=== PATIENT | female | born 1955 | race Caucasian/White ===

== ENCOUNTER 2016-07-24 14:47 | Inpatient (IN) | payer MEDICAID ==
[~2016-07-24] VITALS: Ht 167.6 cm; Wt 60.8 kg
[~2016-07-24 14:47] MED LIST: AMBIEN 10MG TAB10 MG PO; AMITRIPTYLINE 550 MG OR; AMITRIPTYLINE 550 MG PO; AMITRIPTYLINE100 M1; AMOXICILLIN 50500 MG PO; APAP/OXYCODONE1 TA5 PO; B12 INJ.,1000 MCG/M IM; BENADRYL 25MG C25 MG PO; BENADRYL 50MG C50 MG PO; BUT/ASP/CAFF W/1 CAP; CIPRO 500MG TA500 MG PO; CLONAZEPAM 1MG T1 MG PO; CLONAZEPAM0.5 M1 PO; CLONAZEPAM2 MG PO; DOCUSATE SODIU100 MG PO; ELAVIL GENERIC10 MG PO; FLAGYL500 M1 PO; FLONASE 50 MCG16 GM; HYDROCHLOROTHIA25 M1 PO; IBUPROFEN800 MG PO; KEFLEX 500MG.500 MG PO; LEVAQUIN750 MG PO; LISINOPRIL10 MG PO; LORAZEPAM0.5 MG/TAB PO; MORPHINE SULFAT15 M1 PO; MOTRIN 600MG.600 MG PO; MS CONTIN 30MG.30 MG PO; MUPIROCIN 2% O1 INCH TP; NEURONTIN 300M300 MG PO; NORCO 325 MG-51 TAB PO; ONE DAILY WOME1 EACH PO; OXYCODONE 5MG TA5 MG PO; PANTOPRAZOLE SO40 M1 PO; PERCOCET 325 MG1 TA3 PO; PERCOCET 325 MG1 TA4 PO; PHENERGAN 25MG.25 M1 PO; POTASSIUM CHLO20 ME2 PO; PROMETHAZINE HC25 M1 PO; PROVENTIL0.09 MG/AC IH; ROBAXIN-750750 MG PO; TIZANIDINE HCL 44 MG PO; TRIAMCINOL15 GM/TUBE; TYLENOL ES500 MG PO; VIT D2 PO; VITAMIN D1000 IU PO; VOLTAREN50 MG TP; XARELTO20 MG PO; ZANAFLEX 2MG TAB2 MG PO; ZOLPIDEM 5MG TAB5 MG PO
[2016-07-24 14:49] VITALS: BP 141/98
[2016-07-24] MEDS ORDERED: BENTYL10 MG PO (15:00)
--- NOTE | 2016-07-24 15:06 | Emergency Room Report ---
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 N Clinical Suspician of Infection? N Mental Status: 1 - Regular (Normal Baseline) Sepsis Risk:Low Sepsis Risk Have you (or family members/close friends) recently traveled outside the [place]? N If Yes, where/when: Have you had exposure to infectious disease within the past month? TB? Other? Specify: Source patient, RN notes reviewed, family, RN/MD Exam Limitations no limitations Comment This is a 60-year-old female patient presented to the emergency room with abdominal pain, nausea, vomiting, diarrhea, for the past 2 days. Patient is advised that she is unable to hold anything down, solid or liquid. She also appears depressed, over her turning 7 years old shortly. Abdominal pain seems to be radiating to the chest as well, which is a recurrent complaint. Patient just recently underwent a cardiac catheterization performed by Dr. Dai, no stents required. ALLERGIES Coded Allergies: adhesive tape (Severe, BLISTERING WELTS 03/29/15) trazodone (Severe, CHEST TIGHTNESS 03/29/15) NSAIDS (Non-Steroidal Anti-Inflamma (Intermediate, "KIDNEY PROBLEMS" 03/29/15) esomeprazole (Intermediate, I-HIVES 03/29/15) propylene glycol (Intermediate, ITCHING 03/29/15) topiramate (Intermediate, SHORTNESS OF BREATH, ACHY JOINTS 03/29/15) warfarin ("SENSITIVITY" 03/29/15) ketamine (Intermediate, HALLUCINATIONS 03/29/15) pregabalin (Intermediate, SWELLING 03/29/15) pseudoephedrine (Intermediate, PALPITATIONS 03/29/15) Home Medications Reported Medications Diphenhydramine Hcl (Benadryl 25MG CAP) 25 MG PO Q6HP PRN ALLERGIES TIZANIDINE HCL (Tizanidine Hcl 4 Mg Tablet) 4 MG PO Q8HP PRN MUSCLE SPASMS PROMETHAZINE HCL (Promethazine 25mg Tab) 25 MG PO Q8HP PRN NAUSEA/VOMITING HYDROCHLOROTHIAZIDE (Hydrochlorothiazide) 25 MG PO QAM Gabapentin (Neurontin 300MG) 300 MG PO QID OXYCODONE HCL/ACETAMINOPHEN (Oxycodone-Acetaminophen 5-325) 1 TAB PO TID #90 TAB Docusate Sodium 100 MG PO BID Vitamin B12 (Cyanocobalamin Injection) 1,000 MCG IM TWICE WEEKLY Clonazepam (Clonazepam 1MG) 1 MG PO TID #90 Rivaroxaban (Xarelto) 20 MG PO DAILY #30 Lisinopril 10 MG PO DAILY #30 Dicyclomine Hcl (Bentyl 10MG) 10 MG PO Q6HP PRN pain Amitriptyline Hcl (Elavil Generic 10MG Tab) 150 MG PO QHS Fluticasone Propionate (Flonase 50 Mcg Nasal [place]) 1 SPRAY NA PRN PRN ALLERGIES Pantoprazole Sodium 40 MG PO DAILY #30 History Medical History General CAD? No Angina: Yes CT: No Hypertension? Yes Hyperlipidemia? No CHF? No DVT? No PE? Yes COPD? Yes Asthma? Yes Anemia? No GERD? Yes Gastric ulcers? No GI Bleed? No Hernia? Yes Thyroid Problems? No Hypothyroidism? No CVA? No Seizures? No Diabetes? No Insulin Dependent: No Insulin Pump: No Home FSBS? No Renal Insuffiency? No End Stage Renal Disease? No UTI? No Stones? No BPH? No GB Disease: No Nephritic Syndrome? No Asplenia? No Hepatitis? No Sickle Cell Disease? No Arthritis? Yes Migraines? No Cataracts? No Glaucoma? No MRSA? No HIV? No TB? No Anxiety? Yes Depression? Yes Cancer? No Site: SKIN CA, APPENDIX CA More? 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 N/A Family History Family Hx Diabetes No CAD No Hypertension No Hyperlipidemia No Cancer No TB No Social History Smoking Hx Smoker: Current Every Day Smoker Tobacco: Yes Type Cigarettes Packs/day < 1 Pack Alcohol Alcohol: No Review of Systems All Other Systems Reviewed and Negative Cardiovascular chest pain, palpitations Gastrointestinal abdominal pain, diarrhea, nausea, vomiting Physical Exam Vital Signs Vital Signs Date Time Temp Pulse Resp B/P Pulse O2 O2 Flow FiO2 Ox Delivery Rate 07/24 1736 97.9 105 18 144/94 99 07/24 1722 18 07/24 1647 99.2 110 18 135/89 99 07/24 1449 99.2 113 18 141/98 99 General Appearance normal appearance, WD/WN, mild distress, depressed, anxious Neck normal inspection, non-tender, supple, full range of motion Respiratory Status Yes: trachea midline, chest symmetrical, non tender chest. No: respiratory distress. Lung Sounds bilateral: normal breath sounds, lungs clear. 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 No Comment 16:30-case discussed with Dr. Holm, advised the patient's presentation, findings, ED course, vital signs, inability to hold anything down. Dr. Holm advised he will see the patient emergency room 17:20-case discussed with Dr Holm, present in the emergency room, evaluating patient. Dr. Holm recommended hospitalist patient, with IV fluids, IV antibiotics, IV pain control. We'll also obtain a CT scan of the abdomen and pelvis with oral and IV contrast, if possible. 17:20-patient refusing oral contrast, stating that she is unable to tolerate anything orally, despite being premedicated with antiemetics. Results/Orders Laboratory Tests 07/24/16 1635: Sodium 139, Potassium 2.8 *L, Chloride 104, Carbon Dioxide 28, BUN 1 L, Creatinine 0.6, Estimated Creat Clear 96, Estimated GFR (MDRD) 102, Glucose 94, Calcium 7.8 L, Total Bilirubin 0.5, AST 19, ALT 14, Alkaline Phosphatase 103, Total Protein 5.8 L, Albumin 2.4 L, Globulin 3.4 H, Albumin/Globulin Ratio 0.7 L, Amylase 17 L, Lipase 123, WBC 11.7 H, RBC 4.16 L, Hgb 13.0, Hct 40.4, MCV 97.1, RDW 16.4, Plt Count 367, MPV 5.7 L, Gran % 65.3, Gran # 7.7, Lymphocytes % 28.4, Monocytes % 5.6, Eosinophils % 0.4, Basophils % 0.3, Lymphocytes # 3.3, Monocytes # 0.7, Eosinophils # 0.0, Basophils # 0.0, PUBS MCHC 32.2, MCH 31.2 Current Medication Orders Sig/Gus Start time Last Medication Dose Route Stop Time Status Admin Multi-Ingredient GI 0 .STK-MED ONE 07/24 1716 DC Drug PO Ondansetron HCl 0 .STK-MED ONE 07/24 171 DC .ROUTE Potassium Chloride 0 .STK-MED ONE 07/24 171 DC PO Lorazepam 0 .STK-MED ONE 07/24 171 DC .ROUTE Lorazepam 1 MG ONCE ONE 07/24 1715 DC 07/24 IV 07/24 1716 1722 Potassium Chloride 60 MEQ ONCE ONE 07/24 1715 DC 07/24 PO 07/24 1716 1720 Levofloxacin/Dextrose 150 ML .STK-MED ONE 07/24 1634 DC IV Levofloxacin 0 .STK-MED ONE 07/24 1633 DC .ROUTE Metronidazole 0 .STK-MED ONE 07/24 1632 DC .ROUTE Levofloxacin 750 MG ONCE ONE 07/24 1615 DC 07/24 PO 07/24 1616 1636 Levofloxacin/Dextrose 150 ML ONCE ONE 07/24 1615 DCr 07/24 IV 07/24 1744 1637 Metronidazole 500 MG ONCE ONE 07/24 1615 DC 07/24 PO 07/24 1616 1636 Ondansetron HCl 4 MG ONCE ONE 07/24 1600 DC 07/24 IV 07/24 1601 1600 Ondansetron HCl 0 .STK-MED ONE 07/24 1559 DC .ROUTE Sodium Chloride 1,000 ML .Q1H1M 07/24 1515 DC 07/24 IV 07/24 1615 1547 Sodium Chloride 10 ML PRN PRN 07/24 1515 AC IV 07/25 1507 Sodium Chloride 1,000 ML .STK-MED ONE 07/24 1513 DC IV Sodium Chloride 10 ML PRN PRN 07/24 1500 AC IV 07/25 1500 Orders Procedure Date/time Status DIET-NOTHING BY MOUTH 07/24 D Complete Decision to admit 07/[address] ABD & PELVIS W/ CONTRAST 07/[address] ABD/PELVIS REQ 07/24 1606 Complete DIARRHEA PANEL, PCR 07/24 1507 Active ELECTROCARDIOGRAM REQUEST 07/24 1501 Active IV SALINE LOCK 07/24 1501 Active URINALYSIS/COMPLETE 07/24 1501 Active LIPASE 07/24 1501 Complete CBC WITH AUTO DIFF 07/24 1501 Complete CHEM 12 PROFILE 07/24 1501 Complete AMYLASE 07/24 1501 Complete 12 LEAD EKG-MARISASON (INITIAL) 07/24 UNK Active 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 of ischemic chgs, no ectopy, normal QRS, normal ID, no EKG for comparison, non-spec. ST/Twave chgs, ST elevation, ST depression, LBBB, RBBB, ectopy, abnormal Q waves XRAY/CT/US XRAY/CT/US 1 XRAY chest XR interpretation by reviewed by me, discussed w/radiologist Xray Results no infiltrates, normal heart size, normal lung inflation lily XRAY/CT/US 2 CT abdomen, pelvis CT interpretation by discussed w/radiologist CT Results CT scan abdomen and pelvis with IV contrast only, patient could NOT tolerate PO contrast - sigmoid colitis, see radiologist's report Departure Departure Time of Disposition 1720 Disposition Still a Patient Clinical Impression Primary Impression: Colitis Secondary Impressions: Chest pain Qualifiers: Chest pain type: unspecified Qualified Code: R07.9 - Chest pain, unspecified Hypokalemia Condition STABLE ED Critical Care Critical Care No at 1831
--- OUTSIDE RECORDS SUMMARY | 2016-07-24 15:30 | External Medical Summary Rpt ---
Author Author [employer] Organization [employer] Address Unknown Phone Unavailable Purpose Continuity of Care Document - through 2016
--- OUTSIDE RECORDS SUMMARY | 2016-07-24 15:30 | External Medical Summary Rpt ---
Author Author [employer], [employer] Organization [employer] Address Unknown Phone Unavailable
--- OUTSIDE RECORDS SUMMARY | 2016-07-24 15:30 | External Medical Summary Rpt ---
Demographics Preferred Language Danish Marital Status Unknown Lutheran Affiliation Unknown Race Unknown Ethnic Group Unknown Author Author , Organization [employer] Address Unknown Phone Unavailable Purpose Continuity of Care Document - through 2016 Immunization No patient found.
--- OUTSIDE RECORDS SUMMARY | 2016-07-24 15:30 | External Medical Summary Rpt ---
Demographics Preferred Language Armenian Marital Status Unknown Jew Affiliation Unknown Race Unknown Ethnic Group Unknown Author Author , Organization [employer] Address Unknown Phone Unavailable Purpose Continuity of Care Document - through 2016 Immunization No patient found.
[2016-07-24 16:50] LABS: LYMPH # 3.3 K/mm3 (0.7-4.5); LYMPH % 28.4 % (10-50.0)
[2016-07-24 18:27] VITALS: BP 148/100
[2016-07-24 19:52] VITALS: BP 127/94
--- NOTE | 2016-07-24 21:07 | HISTORY AND PHYSICAL REPORT ---
Demographics: Admit date: 07/24/16 Chief complaint: vomiting and diarrhea PRIMARY DIAGNOSIS: COLITIS Allergies: Coded Allergies: adhesive tape (Severe, BLISTERING WELTS 03/29/15) trazodone (Severe, CHEST TIGHTNESS 03/29/15) NSAIDS (Non-Steroidal Anti-Inflamma (Intermediate, "KIDNEY PROBLEMS" 03/29/15) esomeprazole (Intermediate, I-HIVES 03/29/15) propylene glycol (Intermediate, ITCHING 03/29/15) topiramate (Intermediate, SHORTNESS OF BREATH, ACHY JOINTS 03/29/15) warfarin ("SENSITIVITY" 03/29/15) ketamine (Intermediate, HALLUCINATIONS 03/29/15) pregabalin (Intermediate, SWELLING 03/29/15) pseudoephedrine (Intermediate, PALPITATIONS 03/29/15) History of present illness: History of present illness: 60 year old femaile with 2 days of vomiting, diarrhea, and abdominal pain. She denies fevers, chills, or sick contacts. She was seen in the office yesterday with the same complaints. 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 Past medical history: Family HX Family Hx Insignificant No Diabetes No CAD No Hypertension No Hyperlipidemia No Cancer No TB No Immunization HX DT/Tetanus 5-10 Years Ago Flu Refused Pneumonia Never Had General CAD? No Angina: Yes MS: No Hypertension? Yes Hyperlipidemia? No CHF? No DVT? No PE? Yes COPD? Yes Asthma? Yes Anemia? No GERD? Yes Gastric ulcers? No GI Bleed? No Hernia? Yes Thyroid Problems? No Hypothyroidism? No CVA? No Seizures? No Diabetes? No Insulin Dependent: No Insulin Pump: No Home FSBS? No Renal Insuffiency? No UTI? No Stones? No BPH? No GB Disease: No Nephritic Syndrome? No Asplenia? No Hepatitis? No Sickle Cell Disease? No Arthritis? Yes Migraines? No Cataracts? No Glaucoma? No MRSA? No HIV? No TB? No Anxiety? Yes Depression? Yes Cancer? No Site: SKIN CA, APPENDIX CA More? Yes Additional hx: PTSD, PERIPHERAL MOTOR NEUROPATHY DDD LUMBAR SPINE Past Surgical HX Previous Surgery?Y Orthopedic LIPOMA REMOVAL LT KNEE ARTHROSCOPY X TUBAL APPENDECTOMY D/T CANCER SBO R HEMICOLECTOMY HAND SURGERY BASAL CELL CARCINOMA HERNIA REPAIR Current home meds: Reported Medications Diphenhydramine Hcl (Benadryl 25MG CAP) 25 MG PO Q6HP PRN ALLERGIES TIZANIDINE HCL (Tizanidine Hcl 4 Mg Tablet) 4 MG PO Q8HP PRN MUSCLE SPASMS PROMETHAZINE HCL (Promethazine 25mg Tab) 25 MG PO Q8HP PRN NAUSEA/VOMITING HYDROCHLOROTHIAZIDE (Hydrochlorothiazide) 25 MG PO QAM Gabapentin (Neurontin 300MG) 300 MG PO QID OXYCODONE HCL/ACETAMINOPHEN (Oxycodone-Acetaminophen 5-325) 1 TAB PO TID #90 TAB Docusate Sodium 100 MG PO BID Vitamin B12 (Cyanocobalamin Injection) 1,000 MCG IM TWICE WEEKLY Clonazepam (Clonazepam 1MG) 1 MG PO TID #90 Rivaroxaban (Xarelto) 20 MG PO DAILY #30 Lisinopril 10 MG PO DAILY #30 Dicyclomine Hcl (Bentyl 10MG) 10 MG PO Q6HP PRN pain Amitriptyline Hcl (Elavil Generic 10MG Tab) 150 MG PO QHS Fluticasone Propionate (Flonase 50 Mcg Nasal [place]) 1 SPRAY NA PRN PRN ALLERGIES Pantoprazole Sodium 40 MG PO DAILY #30 Social Hx: Smoking HX Tobacco Yes Type Cigarettes Packs/day < 1 PACK Are you/the child exposed to second-hand smoke: Yes Alcohol Alcohol: No Hx of Drug Use Drug Use? No Patient's support system is poor Review of systems: Constitutional No: chills, fever. Respiratory No: cough, shortness of breath, SOB at rest. Cardiovascular no symptoms reported Gastrointestinal/Abdominal see HPI Genitourinary no symptoms reported. Musculoskeletal no symptoms reported. Neurological Yes: no symptoms reported. Exam: Lab data for last 24 hours: Laboratory Tests 07/24/16 1635: Sodium 139, Potassium 2.8 *L, Chloride 104, Carbon Dioxide 28, BUN 1 L, Creatinine 0.6, Estimated Creat Clear 96, Estimated GFR (MDRD) 102, Glucose 94, Calcium 7.8 L, Total Bilirubin 0.5, AST 19, ALT 14, Alkaline Phosphatase 103, Total Protein 5.8 L, Albumin 2.4 L, Globulin 3.4 H, Albumin/Globulin Ratio 0.7 L, Amylase 17 L, Lipase 123, WBC 11.7 H, RBC 4.16 L, Hgb 13.0, Hct 40.4, MCV 97.1, RDW 16.4, Plt Count 367, MPV 5.7 L, Gran % 65.3, Gran # 7.7, Lymphocytes % 28.4, Monocytes % 5.6, Eosinophils % 0.4, Basophils % 0.3, Lymphocytes # 3.3, Monocytes # 0.7, Eosinophils # 0.0, Basophils # 0.0, PUBS MCHC 32.2, MCH 31.2 Admission vital signs: 1ST Vital Signs Result Date Time Pulse Ox 99 07/24 1449 B/P 141/98 07/24 1449 Temp 99.2 07/24 1449 Pulse 113 07/24 1449 Resp 18 07/24 1449 O2 Delivery ROOM AIR 07/24 1827 Exam General appearance: awake, crying Eyes: anicteric ENT: mucous membranes moist Neck: no carotid bruit, no JVD Cardiovascular: tachycardia Respiratory: clear to auscultation ABD: no rebound, soft, distended, tenderness (RLQ) Extremities: moves all Musculoskeletal: motor intact 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 Colitis 2. Hypokalemia 3. Chronic pain syndrome 4. Anxiety disorder Plan: 1. Iv fluids and clear liquids 2. replace potassium 3. control pain as well as possible. Patient's anxiety contributes to poor pain tolerance 4. Home meds that are essential
[2016-07-24 22:35] VITALS: BP 127/94
--- NOTE | 2016-07-24 23:07 | RADIOLOGY REPORT PS360 ---
CT ABD PELVIS W/ CONTRAST CLINICAL INDICATION: Left lower quadrant pain LLQ ABDOMINAL PAIN ORDERING PHYSICIAN: Catracho Holm MD PATIENT AGE: 60 years COMPARISON: 07/16/2016 TECHNIQUE: Axial images obtained with sagittal and coronal reformats. PROCEDURE: Oral Contrast: Redicat IV Contrast: 75 mL Isovue-370. FINDINGS: Lower thorax: Bibasilar atelectatic changes. Contrast is present in the distal esophagus suggesting reflux. Small hiatal hernia. ABDOMEN: Liver: No masses or biliary dilatation. Gallbladder: Nondistended. No radio opaque stones. Pancreas: No masses or peripancreatic fluid collections. Spleen: Unremarkable. Adrenals: Unremarkable Kidneys/ureters: No masses. No renal calculi. No hydronephrosis. No perinephric fluid collections. No ureteral dilatation or obvious ureteral calculi. Stomach bowel: Prominent diffuse thickening noted involving the wall the distal descending and sigmoid colon as previously described consistent with colitis. Diverticulosis is also noted. No focal inflammatory change evident that would indicate diverticulitis. There is haziness of the pericolic fat, perirectal fat, presacral fat. The colonic wall thickening appears slightly worse on today's exam. No free air. No intestinal obstruction Appendix: Prior appendectomy PELVIS: Reproductive: Unremarkable Bladder: Nondistended. No obvious stones or masses. ABDOMEN & PELVIS: Peritoneum: No free air. No fluid collections Lymph nodes: No enlarged lymph nodes apparent. Vasculature: No evidence of abdominal aortic aneurysm. No retroperitoneal hemorrhage evident. Bones: No acute fracture IMPRESSION: 1. Diffuse wall thickening of the distal descending and sigmoid colon consistent with colitis. The colon wall may be somewhat more thickened on today's exam. 2. Diverticulosis. No evidence of diverticulitis.
[2016-07-25 04:19] VITALS: BP 95/49
[2016-07-25 07:18] LABS: LYMPH % 35.5 % (10-50.0)
[2016-07-25 07:21] LABS: HEMOGLOBIN 11.1 g/dL (12.2-16.2)
--- NOTE | 2016-07-25 07:22 | PHARMACY CLINIC NOTE ---
Patient Demographics Patient Demographics Admission date: 07/24/16 Date: 07/25/16 Time: 07 Allergies Coded Allergies: adhesive tape (Severe, BLISTERING WELTS 03/29/15) trazodone (Severe, CHEST TIGHTNESS 03/29/15) NSAIDS (Non-Steroidal Anti-Inflamma (Intermediate, "KIDNEY PROBLEMS" 03/29/15) esomeprazole (Intermediate, I-HIVES 03/29/15) propylene glycol (Intermediate, ITCHING 03/29/15) topiramate (Intermediate, SHORTNESS OF BREATH, ACHY JOINTS 03/29/15) warfarin ("SENSITIVITY" 03/29/15) ketamine (Intermediate, HALLUCINATIONS 03/29/15) pregabalin (Intermediate, SWELLING 03/29/15) pseudoephedrine (Intermediate, PALPITATIONS 03/29/15) HEIGHT- FT: 5 IN: 6.00 K.839 VTE General Information Labs: Laboratory Tests 07/24 1635 Hematology Hgb (12.2 - 16.2 g/dL) 13.0 Hct (37.0 - 47.0 %) 40.4 Plt Count (142 - 424 K/mm3) 367 Disclaimer The following section includes nursing documentation that has been pulled in for pharmacy review. Patient's VTE score: 4 Patient's VTE Risk: LOW RISK Clinical trial participant? No VTE prophylaxis NQF [id number] VTE prophylaxis ordered? Yes Type of prophylaxis/treatment: CECILE (PT TAKES XARELTO WELL) at 0759
--- NOTE | 2016-07-25 07:22 | PHARMACY CLINIC NOTE ---
Patient Demographics Patient Demographics Admission date: 07/24/16 Date: 07/25/16 Time: 07 Allergies Coded Allergies: adhesive tape (Severe, BLISTERING WELTS 03/29/15) trazodone (Severe, CHEST TIGHTNESS 03/29/15) NSAIDS (Non-Steroidal Anti-Inflamma (Intermediate, "KIDNEY PROBLEMS" 03/29/15) esomeprazole (Intermediate, I-HIVES 03/29/15) propylene glycol (Intermediate, ITCHING 03/29/15) topiramate (Intermediate, SHORTNESS OF BREATH, ACHY JOINTS 03/29/15) warfarin ("SENSITIVITY" 03/29/15) ketamine (Intermediate, HALLUCINATIONS 03/29/15) pregabalin (Intermediate, SWELLING 03/29/15) pseudoephedrine (Intermediate, PALPITATIONS 03/29/15) HEIGHT- FT: 5 IN: 6.00 K.839 VTE General Information Labs: Laboratory Tests 07/24 1635 Hematology Hgb (12.2 - 16.2 g/dL) 13.0 Hct (37.0 - 47.0 %) 40.4 Plt Count (142 - 424 K/mm3) 367 Disclaimer The following section includes nursing documentation that has been pulled in for pharmacy review. Patient's VTE score: 4 Patient's VTE Risk: LOW RISK Clinical trial participant? No VTE prophylaxis NQF [id number] VTE prophylaxis ordered? Yes Type of prophylaxis/treatment: CECLIE (PT TAKES XARELTO WELL) at 0714
--- NOTE | 2016-07-25 07:27 | ACUTE CARE PROGRESS NOTE (QUA) ---
Progress Notes Subjective Date 07/25/16 Time 0725 Note Patient is wanting to eat this morning. She states she's hungry and she has a "hunger headache". She is continued to have watery stools and is incontinent of stools. She appears more awake and alert. She does not appear to be in any pain. Abdomen is mildly distended with mild RIGHT upper quadrant tenderness and LEFT lower quadrant tenderness. CT scan yesterday showed persistence of colitis from her CT scan a week ago. Continue on a liquid diet at this time. Cautious advancement of diet. Hypokalemia is corrected. I will stop her IV fluids Objective Findings Last VS-Temp:98.1 B/P:95/49 Pulse:91 Resp:20 SaO2:93 ROOM AIR Last weight lbs:134 oz:2 K.839 Method:Bed Scales Laboratory Tests 07/25/16 0630: Sodium 141, Potassium 4.4, Chloride 111 H, Carbon Dioxide 23, BUN 1 L, Creatinine 0.6, Estimated Creat Clear 97, Estimated GFR (MDRD) 102, Glucose 81, Calcium 7.2 L, Total Bilirubin 0.3, AST 18, ALT 13, Alkaline Phosphatase 85, Total Protein 4.7 L, Albumin 2.0 L, Globulin 2.7, Albumin/Globulin Ratio 0.7 L, WBC 8.4, RBC 3.46 L, Hgb 11.1 L, Hct 35.0 L, MCV 101.1 H, RDW 16.5, Plt Count 226, MPV 7.0 L, Gran % 57.3, Gran # 4.8, Lymphocytes % 35.5, Monocytes % 6.3, Eosinophils % 0.6, Basophils % 0.2, Lymphocytes # 3.0, Monocytes # 0.5, Eosinophils # 0.1, Basophils # 0.0, PUBS MCHC 31.8, MCH 32.2 H 07/24/16 1635: Sodium 139, Potassium 2.8 *L, Chloride 104, Carbon Dioxide 28, BUN 1 L, Creatinine 0.6, Estimated Creat Clear 96, Estimated GFR (MDRD) 102, Glucose 94, Calcium 7.8 L, Total Bilirubin 0.5, AST 19, ALT 14, Alkaline Phosphatase 103, Total Protein 5.8 L, Albumin 2.4 L, Globulin 3.4 H, Albumin/Globulin Ratio 0.7 L, Amylase 17 L, Lipase 123, WBC 11.7 H, RBC 4.16 L, Hgb 13.0, Hct 40.4, MCV 97.1, RDW 16.4, Plt Count 367, MPV 5.7 L, Gran % 65.3, Gran # 7.7, Lymphocytes % 28.4, Monocytes % 5.6, Eosinophils % 0.4, Basophils % 0.3, Lymphocytes # 3.3, Monocytes # 0.7, Eosinophils # 0.0, Basophils # 0.0, PUBS MCHC 32.2, MCH 31.2 Assessment/Plan Problem List 1. Colitis 2. Hypokalemia 3. Chronic pain syndrome 4. Anxiety disorder This inpt stay is expected to cross 2 MNs from start of care No
[2016-07-25 08:00] VITALS: BP 120/79
[2016-07-25 09:45] VITALS: BP 120/79
[2016-07-25 16:00] VITALS: BP 114/67
[2016-07-25 19:48] VITALS: BP 119/62
[2016-07-25 20:00] VITALS: BP 119/62
[2016-07-26 03:39] VITALS: BP 110/65
--- NOTE | 2016-07-26 07:54 | ACUTE CARE PROGRESS NOTE (QUA) ---
Progress Notes Subjective Date 07/26/16 Time 0753 Note Patient reports an excellent appetite with no abdominal pain or nausea. She's had some small loose stools but has been able to make it to the bathroom. She is awake and alert. She looks well. Lungs are clear. Heart has regular rate and rhythm. Abdomen is soft with active bowel sounds. Discharge to home. Follow-up in the office in 3-4 days. Continue Cipro at home Objective Findings Last VS-Temp:98.6 B/P:110/65 Pulse:106 Resp:20 SaO2:92 ROOM AIR Last weight lbs:134 oz:2 K.839 Method:Bed Scales Assessment/Plan Problem List 1. Colitis 2. Hypokalemia 3. Chronic pain syndrome 4. Anxiety disorder This inpt stay is expected to cross 2 MNs from start of care No at 0755
--- NOTE | 2016-07-26 07:56 | Discharge Summary ---
Demographics Admit date: 07/24/16 Discharge date: 07/26/16 Discharge diagnoses Problem List 1. Colitis 2. Hypokalemia 3. Chronic pain syndrome 4. Anxiety disorder History of present illness History of present illness 60 year old femaile with 2 days of vomiting, diarrhea, and abdominal pain. She denies fevers, chills, or sick contacts. She was seen in the office yesterday with the same complaints. 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 Repeat CT scan performed in the emergency department showed persistent sigmoid colitis. Patient was admitted and placed on Flagyl and Levaquin. Patient was placed on clear liquids on admission which she tolerated. On the following morning, July 25, patient requested solid foods but she was continued on liquids because of her complaints less than 24 hours prior of vomiting. She tolerated clear then full liquids. On the evening of the diet was advanced to low residue which she tolerated for the rest of her hospitalization. Patient' s stools became more formed and she became incontinent of both urine and stool. Patient did not have any vomiting while hospitalized. On the she was discharged home. She will continue her prescription of Cipro that she was given in the office. Patient will follow-up in the office in 3-4 days with my nurse practitioner Yuko Hernandez Medications Medications: Discharge meds are as noted. Follow up Follow up in office in: 4 DAYS with: Rivka Hernandez APRN at [id number]
[2016-07-26 09:45] VITALS: BP 135/82
[2016-07-26 09:52] VITALS: BP 135/82
[2016-07-26 13:00] VITALS: BP 135/82
== END 2016-07-26 13:15 | disposition home or self-care (01) | DRG 392 ==
LOC: ER 14:47 → 2ND 17:42 → ER 17:42 → 2ND 18:20
PROVIDERS: Emergency Medicine; Family Medicine
DX: K52.9 Noninfective gastroenteritis and colitis, unspecified (principal); I10 Essential (primary) hypertension; J44.9 Chronic obstructive pulmonary disease, unspecified; G89.4 Chronic pain syndrome; F41.9 Anxiety disorder, unspecified; E87.6 Hypokalemia
CPT/HCPCS: J2405